=== PATIENT | female | born 1990 | race Caucasian/White ===

== ENCOUNTER 2020-12-29 04:00 | Inpatient (IN) | payer SELFPAY ==
[~2020-12-29] VITALS: Ht 160 cm; Wt 65.5 kg
[2020-12-29] MEDS ORDERED: OXYTOCIN 30U/ 0.9% NaCL 500ML 500 ML ONE ×2 (04:08→04:29)
[2020-12-29] MEDS ORDERED: NEWBORN KIT ONE (04:08)
[2020-12-29] MEDS ORDERED: FENTANYL PF 100 MCG/2ML ONE (04:24)
[2020-12-29] MEDS ORDERED: TERBUTALINE 1 MG/ML, 1ML SQ PRN (04:30)
[2020-12-29] MEDS ORDERED: TERBUTALINE 1 MG/ML, 1ML IVPush PRN (04:30)
[2020-12-29] MEDS ORDERED: OXYTOCIN 30U/ 0.9% NaCL 500ML 500 ML IV ONE (04:30)
[2020-12-29] MEDS ORDERED: LACTATED RINGERS 1,000 ML IV SCH (04:30)
[2020-12-29] MEDS ORDERED: PLEASE ENTER ALLERGIES MC SCH ×2 (04:30→07:00)
[2020-12-29] MEDS ORDERED: ONDANSETRON 2MG/ML, 2ML IVPush PRN (04:30)
[2020-12-29] MEDS ORDERED: FENTANYL PF 100 MCG/2ML IV PRN (04:30)
[2020-12-29] MEDS ORDERED: FENTANYL PF 100 MCG/2ML IVPush PRN (04:30)
[2020-12-29] MEDS ORDERED: SIMETHICONE 80 MG CHEW TAB PO PRN (05:00)
[2020-12-29] MEDS ORDERED: ONDANSETRON 2MG/ML, 2ML IV PRN (05:00)
[2020-12-29] MEDS ORDERED: MISOPROSTOL 200 MCG TABLET PR PRN (05:00)
[2020-12-29] MEDS ORDERED: METHYLERGONOVINE 0.2 MG/ML IM PRN (05:00)
[2020-12-29] MEDS ORDERED: TRANEXAMIC ACID 1,000 MG in SODIUM CHLORIDE 0.9% 100 ML IVPB ONE (05:00)
[2020-12-29] MEDS ORDERED: OXYcodone/APAP 5/325MG TABLET PO PRN (05:00)
[2020-12-29] MEDS ORDERED: IBUPROFEN 800 MG TABLET ONE (05:03)
[2020-12-29] MEDS: IBUPROFEN 800 MG TABLET PO PRN ×2 (05:05→22:48)
[2020-12-29 05:47] LABS: ALBUMIN 2.3 g/dL (3.4-5.0); ANION GAP 12 mmol/L (5-15); CALCIUM 9.1 mg/dL (8.5-10.1); CHLORIDE 109 mmol/L (98-107)
[2020-12-29 05:50] LABS: ALANINE AMINOTRANSFERASE 17 U/L (12-78); ALKALINE PHOSPHATASE 220 U/L (45-117); BILIRUBIN,TOTAL 0.2 mg/dL (0.2-1.0); CREATININE 0.77 mg/dL (0.55-1.02); TOTAL PROTEIN 6.1 g/dL (6.4-8.2)
[2020-12-29 05:54] LABS: BASOPHILS % (AUTO) 1 % (0-1); EOSINOPHILS % (AUTO) 1 % (1-7); LYMPHOCYTES % (AUTO) 13 % (22-44); MEAN CORPUSCULAR HEMOGLOBIN 32.5 pg (27.0-34.8); MEAN CORPUSCULAR HGB CONC 35.4 g/dL (32.4-35.8); MEAN PLATELET VOLUME 10.1 fL (7.4-10.4); MONOCYTES % (AUTO) 5 % (2-9); NEUTROPHILS % (AUTO) 81 % (42-75); PLATELET COUNT 200 x10^3/uL (130-400); RED CELL DISTRIBUTION WIDTH 13.3 % (9.6-15.2)
[2020-12-29] MEDS: OXYTOCIN 30U/ 0.9% NaCL 500ML 500 ML IV SCH ×2 (06:20→15:00)
[2020-12-29 08:20] VITALS: BP 138/76
[2020-12-29] MEDS: OXYcodone/APAP 5/325MG TABLET PO PRN ×2 (08:21→13:27)
[2020-12-29] MEDS: PRENATAL VIT/IRON/FA 1 EACH TABLET PO SCH (09:22)
[2020-12-29] MEDS: DOCUSATE 100 MG CAPSULE PO PRN ×2 (09:23→22:48)
[2020-12-29 12:35] VITALS: BP 135/78
[2020-12-29 12:43] LABS: BASOPHILS % (AUTO) 1 % (0-1); EOSINOPHILS % (AUTO) 1 % (1-7); LYMPHOCYTES % (AUTO) 18 % (22-44); MEAN CORPUSCULAR HEMOGLOBIN 32.3 pg (27.0-34.8); MEAN CORPUSCULAR HGB CONC 34.8 g/dL (32.4-35.8); MONOCYTES % (AUTO) 7 % (2-9); NEUTROPHILS % (AUTO) 73 % (42-75); PLATELET COUNT 187 x10^3/uL (130-400); RED BLOOD COUNT 3.57 x10^6/uL (3.82-5.3); RED CELL DISTRIBUTION WIDTH 13.2 % (9.6-15.2)
[2020-12-29 16:54] VITALS: BP 119/65
[2020-12-29 20:14] VITALS: BP 144/75
[2020-12-30 00:23] VITALS: BP 111/71
[2020-12-30 04:15] VITALS: BP 123/70
[2020-12-30 08:22] VITALS: BP 124/75
[2020-12-30] MEDS: DOCUSATE 100 MG CAPSULE PO PRN (09:01)
[2020-12-30] MEDS: OXYcodone/APAP 5/325MG TABLET PO PRN (09:01)
[2020-12-30] MEDS: IBUPROFEN 800 MG TABLET PO PRN (09:01)
[2020-12-30] MEDS: PRENATAL VIT/IRON/FA 1 EACH TABLET PO SCH (09:01)
== END 2020-12-30 14:20 | disposition home or self-care (01) | DRG 807 ==
LOC: LDOP 04:00 → LDIP 04:07 → 2NW 07:04
PROVIDERS: ADMIT Obstetrics & Gynecology; ATTEND Obstetrics & Gynecology
PROC: 10E0XZZ Delivery of Products of Conception, External Approach (ICD-10-PCS; principal; 2020-12-29)
PROC: 0KQM0ZZ Repair Perineum Muscle, Open Approach (ICD-10-PCS; 2020-12-29)
DX: O62.3 Precipitate labor (principal); Z37.0 Single live birth; F17.200 Nicotine dependence, unspecified, uncomplicated; Z3A.38 38 weeks gestation of pregnancy; Z88.2 Allergy status to sulfonamides; O77.0 Labor and delivery complicated by meconium in amniotic fluid; O70.1 Second degree perineal laceration during delivery
CPT/HCPCS: 36415; 80053; 84550; 85025; 86592; 86850; 86900; G0378; J3010; J2590